=== PATIENT | female | born 1970 | race Caucasian/White ===

== ENCOUNTER 2018-05-01 23:37 | Emergency (ER) | payer OTHER ==
[~2018-05-01] VITALS: Ht 162.6 cm; Wt 99.8 kg
[~2018-05-01 23:37] MED LIST: AMLODIPINE BESYL5 M1 PO; ATI1 PO; AZITHROMYCIN250 M1 PO; BROMPHENIRAMIN473 M2; HYDROCHLOROTHIA25 MG PO; KEFLEX; LEVOTHYROXINE0.05 M2 PO; PAROXETINE HCL20 M1 PO; SIMVASTATIN10 M1 PO; VIC
[2018-05-01 23:46] VITALS: Ht 162.6 cm; Wt 99.8 kg
[2018-05-02 02:28] LABS: microscopic required? NO
[2018-05-02 02:34] LABS: urine erythrocyte NEGATIVE (NEGATIVE)
[2018-05-02 02:40] LABS: BASOPHIL % 0.7 % (0-2); PLATELET COUNT 340 x10^3mcL (130-400)
[2018-05-02 02:42] LABS: CARBON DIOXIDE 31.9 mmol/L (21-32); CHLORIDE SERUM 100 mmol/L (98-107); CREATININE SERUM 0.8 mg/dL (0.6-1.0); GFR1 > 60 mL/min; GLUCOSE SERUM 110 mg/dL (74-106); POTASSIUM SERUM 3.2 mmol/L (3.5-5.1); RED CELL DISTRIBUTION WIDTH 15.1 % (11.5-14.5); SODIUM SERUM 141 mmol/L (136-145)
[2018-05-02 02:47] LABS: ALBUMIN 3.4 g/dL (3.4-5.0); ALKALINE PHOSPHATASE 113 U/L (46-116); ALT/SGPT 25 U/L (14-59); AST/SGOT 12 U/L (15-37); BILIRUBIN TOTAL 0.26 mg/dL (0.20-1.00); LIPASE 116 IU/L (73-393); TOTAL PROTEIN, SERUM 7.8 g/dL (6.4-8.2)
[2018-05-02 05:26] VITALS: BP 143/87
== END 2018-05-02 05:26 | disposition home or self-care (01) ==
LOC: ED 23:37
PROVIDERS: Emergency Medicine
DX: E87.6 Hypokalemia (principal); R10.11 Right upper quadrant pain; I10 Essential (primary) hypertension; F41.9 Anxiety disorder, unspecified; K21.9 Gastro-esophageal reflux disease without esophagitis; Z90.49 Acquired absence of other specified parts of digestive tract; Z88.0 Allergy status to penicillin
CPT/HCPCS: J1885; J2060

== ENCOUNTER 2018-07-17 02:50 | Emergency (ER) | payer OTHER ==
[2018-07-17 02:57] VITALS: Ht 154.9 cm
[2018-07-17 03:38] VITALS: BP 142/81
== END 2018-07-17 03:39 | disposition home or self-care (01) ==
LOC: ED 02:50
DX: F41.9 Anxiety disorder, unspecified (principal); J06.9 Acute upper respiratory infection, unspecified; I10 Essential (primary) hypertension; K21.9 Gastro-esophageal reflux disease without esophagitis; Z90.49 Acquired absence of other specified parts of digestive tract; Z88.0 Allergy status to penicillin
CPT/HCPCS: Q0092